=== PATIENT | female | born 1985 | race Caucasian/White ===

== ENCOUNTER → 2020-09-28 | Outpatient (CLI) | payer MEDICAID ==
--- NOTE | 2020-09-28 15:03 | FL ---
Hysterosalpingogram HISTORY: Secondary infertility x1 year [employer] film is unremarkable. 42 seconds fluoroscopy time, 5 intraoperative images following informed consent, Speculum was introduced into the vagina. Intrauterine catheter was introduced under direct visualizat ion. The balloon was insufflated. Gentle hand injection of contrast material performed. Spot images o btained. The fallopian tubes are patent bilaterally. Free spill of contrast material is noted bilaterally. Lelia chad within normal limits. Balloon was deflated and withdrawn, speculum removed. No immediate complication. Patient remained sta ble condition. IMPRESSION: Patent fallopian tubes
== END | disposition home or self-care (01) ==
LOC: RADUSWWP 13:23
PROVIDERS: ATTEND Obstetrics & Gynecology Reproductive Endocrinology
DX: N97.9 Female infertility, unspecified (principal)
CPT/HCPCS: 58340; 74740; Q9966